=== PATIENT | female | born 1960 | race Caucasian/White ===

== ENCOUNTER 2021-05-05 06:36 | Emergency (ER) | payer MEDICARE ==
[~2021-05-05] VITALS: Ht 157.5 cm; Wt 47.7 kg
[~2021-05-05 06:36] MED LIST: HYDR-4383 PO
[2021-05-05] MEDS ORDERED: LORazepam 2 mg/ml vial IM ONE (08:45)
[2021-05-05] MEDS ORDERED: DEXA4TAB67 PO (10:31)
[2021-05-05] MEDS ORDERED: TRAM50TA2 PO (10:31)
[2021-05-05 11:01] VITALS: BP 158/94
== END 2021-05-05 11:03 | disposition home or self-care (01) ==
LOC: ER 06:37
DX: M48.02 Spinal stenosis, cervical region (principal); M43.12 Spondylolisthesis, cervical region; G89.29 Other chronic pain; Z98.890 Other specified postprocedural states
CPT/HCPCS: 72125; 96372; 99284; J2060

== ENCOUNTER → 2021-05-19 | Emergency (ER) | payer MEDICARE ==
[~2021-05-19] VITALS: Ht 157.5 cm; Wt 47.7 kg
[~2021-05-19] MED LIST changes: +DEXA4TAB67 PO; +LORazepam 2 mg/ml vial IV ONE; +acetaminophen 325mg tablet PO ONE; +morphine 4 MG/ML inj SYRINge IV PRN; +ondansetron/PF 4mg/2ml inj IV ONE
[2021-05-19 19:39] VITALS: BP 166/96
== END | disposition short-term general hospital (02) ==
LOC: ER 12:05
DX: R53.1 Weakness (principal); Z20.822 Contact with and (suspected) exposure to COVID-19; M48.02 Spinal stenosis, cervical region; R20.0 Anesthesia of skin; M54.2 Cervicalgia; G89.29 Other chronic pain; Z98.890 Other specified postprocedural states; Z79.899 Other long term (current) drug therapy
CPT/HCPCS: 70551; 72141; 87635; 96374; 96375; 99285; C9803; J2060; J2270; J2405

== ENCOUNTER 2023-03-20 07:02 | Emergency (ER) | payer MEDICARE ==
[~2023-03-20] VITALS: Ht 154.9 cm; Wt 52.2 kg
[~2023-03-20 07:02] MED LIST changes: -LORazepam 2 mg/ml vial IV ONE; -acetaminophen 325mg tablet PO ONE; -morphine 4 MG/ML inj SYRINge IV PRN; -ondansetron/PF 4mg/2ml inj IV ONE
[2023-03-20 07:06] VITALS: BP 198/96; PULSE 84; O2SAT 99
[2023-03-20] MEDS ORDERED: ketorolac trometh. 30mg/ml inj. IM ONE (07:50)
[2023-03-20 08:13] VITALS: RESP 18
== END 2023-03-20 08:14 | disposition home or self-care (01) ==
LOC: ER 07:02
DX: S29.011A Strain of muscle and tendon of front wall of thorax, initial encounter (principal); W19.XXXA Unspecified fall, initial encounter; Y93.89 Activity, other specified; Y92.89 Other specified places as the place of occurrence of the external cause; Y99.8 Other external cause status
CPT/HCPCS: 71101; 96372; 99283; J1885